=== PATIENT | male | born 1995 | race Caucasian/White ===

== ENCOUNTER 2017-06-09 21:39 | Inpatient (IN) ==
[2017-06-09] MEDS ORDERED: SODIUM CHLORIDE 0.9% 1,000 ML IV STA (22:07)
[2017-06-09 22:14] LABS: Basophils # 0.1 10*3/uL (0.0-0.2); Basophils % 0.3 % (0.0-0.8); Eosinophils # 0.2 10*3/uL (0.0-0.87); Eosinophils % 1.1 % (0.00-10.9); Hematocrit 43.4 VOL% (42.0-52.0); Hemoglobin 14.7 GM/DL (14.0-18.0); Immature Granulocytes % 0.7 %; Immature Granulocytes Absolute 0.13 #; Lymphocytes # 6.5 10*3/uL (1.4-4.0); Lymphocytes % 35.2 % (21.2-54.2); Mean Corpuscular HGB Conc 33.9 GM/DL (32-36); Mean Corpuscular Hemoglobin 30 PG (27-34); Mean Corpuscular Volume 87.3 FL (87-102); Mean Platelet Volume 10.1 FL (9.6-12.0); Monocytes # 1.9 10*3/uL (0.11-0.8); Monocytes % 10.3 % (1.7-12.7); Neutrophils # 9.7 10*3/uL (1.4-7.4); Neutrophils % 52.4 % (38.7-73.9); Platelet Count 283 T/CUMM (130-400); Red Blood Count 4.97 MC/CUMM (3.8-5.5); Red Cell Distribution Width 11.9 % (9.3-17.3); White Blood Count 18.5 T/CUMM (4-12)
[2017-06-09] MEDS ORDERED: ONDANSETRON 4 MG/2 ML VIAL IV PRN (22:15)
[2017-06-09 22:39] LABS: Albumin 3.3 G/DL (3.4-5.0); Bilirubin,Total 0.6 MG/DL (0.2-1.0); Calcium 8.9 MG/DL (8.5-10.1); Osmolality,Calculated 274.1 MOS/KG (273-304); Potassium 4.6 MMOL/L (3.5-5.1); Total Protein 6.8 G/DL (6.4-8.3)
[2017-06-09 23:19] LABS: PT Patient Result 10.8 SECS; Partial Thromboplastin Time 25.4 SECS (0-40)
[2017-06-10] MEDS: DEXTROSE 5% LACTATED RINGERS 1,000 ML IV SCH ×2 (00:28→08:02)
[2017-06-10 06:33] LABS: Basophils % 0.4 % (0.0-0.8); Eosinophils # 0.1 10*3/uL (0.0-0.87); Eosinophils % 1.3 % (0.00-10.9); Hemoglobin 12.7 GM/DL (14.0-18.0); Immature Granulocytes % 0.9 %; Immature Granulocytes Absolute 0.07 #; Lymphocytes # 3.1 10*3/uL (1.4-4.0); Lymphocytes % 39.7 % (21.2-54.2); Mean Corpuscular HGB Conc 35.3 GM/DL (32-36); Mean Corpuscular Hemoglobin 31 PG (27-34); Mean Corpuscular Volume 86.5 FL (87-102); Monocytes # 0.8 10*3/uL (0.11-0.8); Monocytes % 10.7 % (1.7-12.7); Neutrophils # 3.7 10*3/uL (1.4-7.4); Platelet Count 254 T/CUMM (130-400); Red Blood Count 4.16 MC/CUMM (3.8-5.5); White Blood Count 7.8 T/CUMM (4-12)
[2017-06-10 07:05] LABS: Albumin 3.1 G/DL (3.4-5.0); Bilirubin,Total 0.7 MG/DL (0.2-1.0); Calcium 8.5 MG/DL (8.5-10.1); Osmolality,Calculated 282.5 MOS/KG (273-304); Potassium 4.5 MMOL/L (3.5-5.1); Total Protein 5.9 G/DL (6.4-8.3)
[2017-06-10] MEDS ORDERED: PANTOPRAZOLE 40 MG TABLET PO SCH (09:00)
[2017-06-10] MEDS: HYDROmorphone 2 MG/1 ML VIAL IV PRN ×2 (09:55→10:00)
[2017-06-10] MEDS ORDERED: PROPOFOL 200 MG/20 ML VIAL IV ONE (09:56)
[2017-06-10] MEDS ORDERED: SEVOFLURANE 1 UNIT/15 MINUTE INH ONE (09:56)
[2017-06-10] MEDS ORDERED: fentaNYL 100 MCG/2 ML VIAL ONE (09:56)
[2017-06-10] MEDS ORDERED: ONDANSETRON 4 MG/2 ML VIAL ONE (09:56)
[2017-06-10] MEDS ORDERED: HYDROmorphone 2 MG/1 ML VIAL ONE (09:56)
[2017-06-10] MEDS ORDERED: SUCCINYLCHOLINE 200 MG/10 ML VIAL ONE (09:57)
[2017-06-10] MEDS ORDERED: DEXAMETHASONE 10 MG/1 ML VIAL ONE (09:57)
[2017-06-10] MEDS ORDERED: ACETAMINOPHEN 1,000 MG/100 ML VIAL IV ONE (09:57)
[2017-06-10] MEDS ORDERED: ONDANSETRON 4 MG/2 ML VIAL IV PRN (09:59)
[2017-06-10] MEDS ORDERED: LACTATED RINGERS 1,000 ML IV SCH (10:00)
[2017-06-10 13:40] VITALS: BP 112/71
== END 2017-06-10 14:09 | disposition home or self-care (01) | DRG 909 ==
LOC: N.ED 21:39 → N.EDINP 22:15 → INTOOBSV 22:15 → N.3E 23:14
PROVIDERS: ADMIT Otolaryngology; ATTEND Otolaryngology